=== PATIENT | male | born 1975 | race Caucasian/White ===

== ENCOUNTER 2017-11-01 18:04 | Emergency (ER) | payer MEDICARE ==
[2017-11-01 18:45] VITALS: BP 125/87; PULSE 113; O2SAT 99
[2017-11-01] MEDS ORDERED: TORAdol 30 mg Injection IM ONE (19:45)
[2017-11-01] MEDS ORDERED: TORAdol 30 mg Injection ONE (19:51)
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
--- NOTE | 2017-11-02 08:42 | XRAY ---
Indication: Pain following injury. Comparison: March 11, 2008. 2 views of the left hip again demonstrates normal bones, articulation, and soft tissues.
--- NOTE | 2017-11-02 08:42 | XRAY ---
Indication: Pain and swelling following injury. Comparison: None 3 views of the left ankle demonstrate mild lateral soft tissue swelling and small medial talonavicular accessory ossicle. No other bony, articular, or soft tissue abnormalities.
== END 2017-11-01 21:01 | disposition home or self-care (01) ==
LOC: ED 18:04
DX: S70.02XA Contusion of left hip, initial encounter (principal); M25.552 Pain in left hip; M25.572 Pain in left ankle and joints of left foot; W21.11XA Struck by baseball bat, initial encounter
CPT/HCPCS: 73502; 73610; 96372; 99284; J1885